=== PATIENT | female | born 2000 | race Asian ===

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

== ENCOUNTER 2018-03-08 07:05 | Emergency (ER) | payer OTHER ==
[~2018-03-08] VITALS: Ht 157.5 cm; Wt 61.7 kg
[2018-03-08 07:19] VITALS: BP 113/71; TEMP 97.9
== END 2018-03-08 07:42 | disposition home or self-care (01) ==
LOC: ED 07:05
DX: J00 Acute nasopharyngitis [common cold] (principal); R11.2 Nausea with vomiting, unspecified
CPT/HCPCS: 99282

== ENCOUNTER 2018-07-13 07:29 | Emergency (ER) | payer OTHER ==
[~2018-07-13] VITALS: Ht 157.5 cm; Wt 70.8 kg
[2018-07-13 07:36] VITALS: TEMP 97.7
[2018-07-13] MEDS ORDERED: PRENATAL1 T10 PO (07:47)
[2018-07-13 09:16] LABS: PLATELET COUNT 215 K/uL (152-353)
[2018-07-13 09:26] LABS: POTASSIUM 3.7 mmol/L (3.6-5.2)
[2018-07-13 10:31] VITALS: BP 118/63
== END 2018-07-13 10:31 | disposition home or self-care (01) ==
LOC: ED 07:29
PROVIDERS: Family Medicine
DX: R10.2 Pelvic and perineal pain (principal); Z33.1 Pregnant state, incidental; E86.9 Volume depletion, unspecified
CPT/HCPCS: 36415; 80053; 81000; 85027; 96360; 99284

== ENCOUNTER 2018-08-25 22:17 | Emergency (ER) | payer OTHER ==
[~2018-08-25] VITALS: Ht 157.5 cm; Wt 70.8 kg
[~2018-08-25 22:17] MED LIST changes: +PRENATAL1 T10 PO
[2018-08-25 22:22] VITALS: BP 147/87; TEMP 98.2
== END 2018-08-25 22:46 | disposition short-term general hospital (02) ==
LOC: ED 22:17
DX: O60.03 Preterm labor without delivery, third trimester (principal); Z3A.36 36 weeks gestation of pregnancy
CPT/HCPCS: 99284

== ENCOUNTER 2019-02-05 19:23 | Emergency (ER) | payer OTHER ==
[~2019-02-05] VITALS: Ht 157.5 cm; Wt 68.5 kg
[2019-02-05 22:43] VITALS: BP 128/74; TEMP 98.3
== END 2019-02-05 22:43 | disposition home or self-care (01) ==
LOC: ED 19:23
DX: B35.3 Tinea pedis (principal)
CPT/HCPCS: 99282

== ENCOUNTER 2019-08-16 08:13 | Emergency (ER) | payer OTHER ==
[~2019-08-16] VITALS: Ht 157.5 cm; Wt 61.2 kg
[2019-08-16 09:05] LABS: POTASSIUM 3.7 mmol/L (3.6-5.2)
[2019-08-16 09:44] VITALS: BP 131/78; TEMP 98.2
[2019-08-16 09:47] LABS: PLATELET COUNT 242 K/uL (152-353)
== END 2019-08-16 09:45 | disposition home or self-care (01) ==
LOC: ED 08:13
PROVIDERS: Hospitalist
DX: J06.9 Acute upper respiratory infection, unspecified (principal); R11.2 Nausea with vomiting, unspecified; F17.210 Nicotine dependence, cigarettes, uncomplicated
CPT/HCPCS: 36415; 80053; 81000; 81025; 82150; 83690; 85027; 99283

== ENCOUNTER 2019-10-11 15:05 | Emergency (ER) | payer OTHER ==
[~2019-10-11] VITALS: Ht 157.5 cm; Wt 61.2 kg
[2019-10-11 15:32] LABS: PLATELET COUNT 212 K/uL (152-353)
[2019-10-11 15:41] LABS: POTASSIUM 3.6 mmol/L (3.6-5.2)
[2019-10-11 16:43] VITALS: BP 134/72; TEMP 98.9
== END 2019-10-11 16:44 | disposition home or self-care (01) ==
LOC: ED 15:05
PROVIDERS: Hospitalist
DX: R10.84 Generalized abdominal pain (principal); N39.0 Urinary tract infection, site not specified; K59.09 Other constipation
CPT/HCPCS: 80053; 81000; 81025; 82150; 83690; 85027; 87077; 87086; 87088; 87186; 96365; 96375; 99284; J0696; J1885

== ENCOUNTER 2019-12-09 23:16 | Emergency (ER) | payer OTHER ==
[~2019-12-09] VITALS: Ht 157.5 cm; Wt 61.2 kg
[2019-12-10 00:15] LABS: PLATELET COUNT 228 K/uL (152-353)
[2019-12-10 00:18] LABS: POTASSIUM 3.7 mmol/L (3.6-5.2)
[2019-12-10 00:48] VITALS: BP 119/74; TEMP 98.5
== END 2019-12-10 00:49 | disposition home or self-care (01) ==
LOC: ED 23:16
PROVIDERS: Emergency Medicine
DX: R10.31 Right lower quadrant pain (principal); N39.0 Urinary tract infection, site not specified
CPT/HCPCS: 80053; 81000; 81025; 82150; 83690; 85027; 87086; 87088; 96374; 99284; J1885

== ENCOUNTER 2020-02-23 12:09 | Emergency (ER) | payer OTHER ==
[~2020-02-23] VITALS: Ht 157.5 cm; Wt 61.2 kg
[2020-02-23 12:27] VITALS: BP 133/82; TEMP 99.1
[2020-02-23 13:04] LABS: POTASSIUM 3.8 mmol/L (3.6-5.2)
[2020-02-23 13:09] LABS: PLATELET COUNT 214 K/uL (152-353)
== END 2020-02-23 14:39 | disposition home or self-care (01) ==
LOC: ED 12:09
PROVIDERS: Family Medicine
DX: N39.0 Urinary tract infection, site not specified (principal); N12 Tubulo-interstitial nephritis, not specified as acute or chronic
CPT/HCPCS: 80053; 81000; 85027; 87077; 87086; 87088; 87186; 96372; 99283; J0696

== ENCOUNTER 2020-04-14 11:05 | Emergency (ER) | payer OTHER ==
[~2020-04-14] VITALS: Ht 157.5 cm; Wt 61.2 kg
[2020-04-14 11:16] VITALS: BP 115/73; TEMP 97.1
== END 2020-04-14 12:30 | disposition home or self-care (01) ==
LOC: ED 11:05
DX: J06.9 Acute upper respiratory infection, unspecified (principal); Z03.818 Encounter for observation for suspected exposure to other biological agents ruled out; F17.210 Nicotine dependence, cigarettes, uncomplicated
CPT/HCPCS: 87635; 99282; U0003

== ENCOUNTER 2020-06-10 18:39 | Emergency (ER) | payer OTHER ==
[~2020-06-10] VITALS: Ht 157.5 cm; Wt 65.3 kg
[2020-06-10 21:30] VITALS: BP 112/75; TEMP 97.8
== END 2020-06-10 21:30 | disposition home or self-care (01) ==
LOC: ED 18:39
DX: N39.0 Urinary tract infection, site not specified (principal); R10.2 Pelvic and perineal pain
CPT/HCPCS: 81000; 81025; 87086; 87088; 99283

== ENCOUNTER 2021-01-25 09:27 | Emergency (ER) | payer OTHER ==
[~2021-01-25] VITALS: Ht 157.5 cm; Wt 64.0 kg
[2021-01-25 09:36] VITALS: TEMP 97.9
[2021-01-25 10:50] VITALS: BP 118/69
== END 2021-01-25 10:50 | disposition home or self-care (01) ==
LOC: ED 09:27
DX: J06.9 Acute upper respiratory infection, unspecified (principal); J02.9 Acute pharyngitis, unspecified
CPT/HCPCS: 87651; 99282

== ENCOUNTER 2021-05-10 07:24 | Emergency (ER) | payer OTHER ==
[~2021-05-10] VITALS: Ht 157.5 cm; Wt 64.0 kg
[2021-05-10 07:33] VITALS: TEMP 98.2
[2021-05-10 09:25] VITALS: BP 118/66
== END 2021-05-10 09:31 | disposition home or self-care (01) ==
LOC: ED 07:24
DX: S39.012A Strain of muscle, fascia and tendon of lower back, initial encounter (principal); X58.XXXA Exposure to other specified factors, initial encounter; Y92.89 Other specified places as the place of occurrence of the external cause
CPT/HCPCS: 99281

== ENCOUNTER 2021-06-29 05:15 | Emergency (ER) | payer OTHER ==
[~2021-06-29] VITALS: Ht 157.5 cm; Wt 72.6 kg
[2021-06-29 05:28] VITALS: TEMP 99.7
[2021-06-29 07:17] VITALS: BP 139/78
== END 2021-06-29 07:20 | disposition home or self-care (01) ==
LOC: ED 05:15
DX: L05.01 Pilonidal cyst with abscess (principal)
CPT/HCPCS: 99282

== ENCOUNTER 2021-07-01 18:01 | Emergency (ER) | payer OTHER ==
[~2021-07-01] VITALS: Ht 157.5 cm; Wt 72.6 kg
[2021-07-01 19:41] LABS: PLATELET COUNT 283 K/uL (152-353)
[2021-07-01 19:47] LABS: POTASSIUM 3.8 mmol/L (3.6-5.2)
[2021-07-01 22:40] VITALS: BP 118/72; TEMP 98.2
== END 2021-07-01 22:40 | disposition home or self-care (01) ==
LOC: ED 18:01
PROVIDERS: Family Medicine
DX: K52.89 Other specified noninfective gastroenteritis and colitis (principal); R11.2 Nausea with vomiting, unspecified
CPT/HCPCS: 36415; 80053; 81000; 81025; 82150; 83690; 85027; 96360; 96361; 96375; 99284; J1885; J2405

== ENCOUNTER 2021-09-03 20:43 | Emergency (ER) | payer OTHER ==
[~2021-09-03] VITALS: Ht 157.5 cm; Wt 68.5 kg
[2021-09-03 21:50] VITALS: BP 142/89; TEMP 99
== END 2021-09-03 21:50 | disposition home or self-care (01) ==
LOC: ED 20:43
DX: R51.9 Headache, unspecified (principal)
CPT/HCPCS: 96372; 99283; J1200; J1885; J2405

== ENCOUNTER 2021-09-11 05:47 | Emergency (ER) | payer OTHER ==
[~2021-09-11] VITALS: Ht 157.5 cm; Wt 68.5 kg
[2021-09-11 06:27] LABS: PLATELET COUNT 211 K/uL (152-353)
[2021-09-11 06:37] LABS: POTASSIUM 3.6 mmol/L (3.6-5.2)
[2021-09-11 06:57] LABS: PARTIAL THROMBOPLASTIN TIME 31.1 SECONDS (24.5-33.6)
[2021-09-11 07:30] VITALS: BP 137/82; TEMP 98
== END 2021-09-11 07:30 | disposition home or self-care (01) ==
LOC: ED 05:47
PROVIDERS: Hospitalist
DX: R00.2 Palpitations (principal); F12.90 Cannabis use, unspecified, uncomplicated; I49.8 Other specified cardiac arrhythmias
CPT/HCPCS: 80053; 80307; 80320; 81000; 81025; 82550; 83880; 84484; 85027; 85610; 85730; 93005; 96360; 96374; 99284

== ENCOUNTER 2021-11-13 09:30 | Emergency (ER) | payer OTHER ==
[~2021-11-13] VITALS: Ht 157.5 cm; Wt 71.2 kg
[2021-11-13 10:50] VITALS: BP 110/61; TEMP 98
== END 2021-11-13 10:50 | disposition home or self-care (01) ==
LOC: ED 09:30
PROC: 0H98XZZ Drainage of Buttock Skin, External Approach (ICD-10-PCS; principal; 2021-11-13)
DX: L05.91 Pilonidal cyst without abscess (principal)
CPT/HCPCS: 87070; 87205; 99283; J2001

== ENCOUNTER 2022-02-10 08:01 | Emergency (ER) | payer OTHER ==
[~2022-02-10] VITALS: Ht 157.5 cm; Wt 71.2 kg
[2022-02-10 08:05] VITALS: TEMP 97.5
[2022-02-10 09:34] VITALS: BP 121/76
== END 2022-02-10 09:35 | disposition home or self-care (01) ==
LOC: ED 08:01
DX: J32.8 Other chronic sinusitis (principal); J02.9 Acute pharyngitis, unspecified; F17.210 Nicotine dependence, cigarettes, uncomplicated
CPT/HCPCS: 87502; 87651; 99283

== ENCOUNTER 2022-04-28 11:17 | Emergency (ER) | payer OTHER ==
[~2022-04-28] VITALS: Ht 157.5 cm; Wt 74.4 kg
[2022-04-28 11:20] VITALS: BP 115/77; TEMP 99.5
== END 2022-04-28 12:02 | disposition home or self-care (01) ==
LOC: ED 11:17
DX: Z87.440 Personal history of urinary (tract) infections (principal); Z32.01 Encounter for pregnancy test, result positive
CPT/HCPCS: 81002; 81025; 99284

== ENCOUNTER 2022-05-05 10:16 | Emergency (ER) | payer OTHER ==
[~2022-05-05] VITALS: Ht 157.5 cm; Wt 75.3 kg
[2022-05-05 10:23] VITALS: BP 114/81; TEMP 97.5
== END 2022-05-05 11:25 | disposition home or self-care (01) ==
LOC: ED 10:16
DX: R10.84 Generalized abdominal pain (principal); Z33.1 Pregnant state, incidental
CPT/HCPCS: 81002; 99282

== ENCOUNTER 2022-05-26 10:42 | Emergency (ER) | payer OTHER ==
[~2022-05-26] VITALS: Ht 157.5 cm; Wt 74.4 kg
[2022-05-26 10:55] VITALS: BP 121/73; TEMP 98.2
== END 2022-05-26 12:13 | disposition home or self-care (01) ==
LOC: ED 10:42
DX: L03.317 Cellulitis of buttock (principal); Z33.1 Pregnant state, incidental
CPT/HCPCS: 80307; 81002; 99282

== ENCOUNTER 2022-06-21 11:30 | Emergency (ER) | payer OTHER ==
[~2022-06-21] VITALS: Ht 157.5 cm; Wt 74.4 kg
[2022-06-21 11:38] VITALS: BP 136/87; TEMP 97.3
== END 2022-06-21 13:10 | disposition home or self-care (01) ==
LOC: ED 11:30
DX: B34.9 Viral infection, unspecified (principal)
CPT/HCPCS: 87651; 99282

== ENCOUNTER 2022-07-27 11:16 | Emergency (ER) | payer OTHER ==
[~2022-07-27] VITALS: Ht 157.5 cm; Wt 73.5 kg
[2022-07-27 12:03] VITALS: BP 114/69; TEMP 97.8
== END 2022-07-27 12:05 | disposition home or self-care (01) ==
LOC: ED 11:16
DX: J02.9 Acute pharyngitis, unspecified (principal)
CPT/HCPCS: 87651; 99282

== ENCOUNTER 2022-10-14 18:04 | Emergency (ER) | payer OTHER ==
[~2022-10-14] VITALS: Ht 157.5 cm; Wt 79.4 kg
[2022-10-14 18:36] LABS: PLATELET COUNT 236 K/uL (152-353)
[2022-10-14 18:56] LABS: POTASSIUM 3.4 mmol/L (3.6-5.2)
[2022-10-14 22:30] VITALS: BP 114/76; TEMP 97.3
== END 2022-10-14 22:30 | disposition home or self-care (01) ==
LOC: ED 18:04
PROVIDERS: Family Medicine
DX: R42 Dizziness and giddiness (principal); E86.0 Dehydration; Z3A.21 21 weeks gestation of pregnancy
CPT/HCPCS: 80053; 80307; 81000; 82150; 85027; 96361; 96374; 99284; J2405